=== PATIENT | male | born 1975 ===

== ENCOUNTER 2017-03-15 20:20 | Emergency (ER) | payer OTHER ==
[2017-03-15 20:37] VITALS: BP 133/78; PULSE 75; RESP 20; TEMP 98.5; O2SAT 95
--- NOTE | 2017-03-15 21:15 | C.PDOC ---
Time Seen by Provider: 03/15/17 21:01 Chief Complaint (Nursing): ENT Problem PMH - Immunization History Hx Tetanus Toxoid Vaccination: No Hx Influenza Vaccination: No Hx Pneumococcal Vaccination: No ED Course And Treatment O2 Sat by Pulse Oximetry: 95 Disposition Counseled Patient/Family Regarding: Diagnosis, Need For Followup, Rx Given - Disposition Referrals: [facility] [Outside] Disposition: HOME/ ROUTINE Disposition Time: 21:12 Condition: STABLE Additional Instructions: Gargle with warm salt water Continue chloraseptic spray Take motrin for pain Follow up with PMD Return to ER if worse Prescriptions: Azithromycin [Zithromax] 250 mg PO DAILY #6 tab Instructions: Pharyngitis (ED) Print Language: ALBANIAN - Clinical Impression Clinical Impression: Pharyngitis
--- NOTE | 2017-03-15 21:19 | C.PDOC ---
History Of Present Illness The patient, a 41 y/o male, presents to the ED for evaluation of sore throat and left ear pain which began around 3 days ago. Patient also reports hoarseness of his voice. Patient states he found no relief after trying over-the -counter medications and now presents to the ED for further evaluation. Patient denies fever, chills, headache, cough, runny nose. Time Seen by Provider: 03/15/17 21:01 Chief Complaint (Nursing): ENT Problem History Per: Patient History/Exam Limitations: None Onset/Duration Of Symptoms: Days (3) Current Symptoms Are (Timing): Still Present Quality (Ear): Pain W/Touch Past Medical History Reviewed: Historical Data, Nursing Documentation, Vital Signs Vital Signs: Last Vital Signs Temp 98.5 F 03/15/17 20:34 Pulse 75 03/15/17 20:34 Resp 20 03/15/17 21:26 BP 133/78 03/15/17 20:34 Pulse Ox 95 03/16/17 02:38 - Medical History PMH: No Chronic Diseases Surgical History: No Surg Hx Family History: States: Unknown Family Hx - Social History Hx Alcohol Use: Yes Hx Substance Use: No - Immunization History Hx Tetanus Toxoid Vaccination: No Hx Influenza Vaccination: No Hx Pneumococcal Vaccination: No Review Of Systems Except As Marked, All Systems Reviewed And Found Negative. Constitutional: Negative for: Fever, Chills ENT: Positive for: Ear Pain (left ), Throat Pain, Other (+hoarse voice ). Negative for: Nose Discharge Respiratory: Negative for: Cough Neurological: Negative for: Headache Physical Exam - Physical Exam Appears: Non-toxic, No Acute Distress Skin: Normal Color, Warm, Dry Head: Atraumatic, Normacephalic, Tenderness (submandibular gland b/l) Eye(s): bilateral: Normal Inspection, EOMI Ear(s): Bilateral: Normal Nose: Normal, No Discharge Oral Mucosa: Moist Throat: Erythema (mild ), No Exudate Neck: Normal ROM, Supple, No Other (swelling ) Chest: Symmetrical, No Deformity, No Tenderness Cardiovascular: Rhythm Regular, No Murmur Respiratory: Normal Breath Sounds, No Rales, No Rhonchi, No Wheezing Back: Normal Inspection Extremity: Normal ROM, Capillary Refill (less than 2 seconds ) Neurological/Psych: Oriented x3, Normal Speech, Normal Cognition Gait: Steady ED Course And Treatment O2 Sat by Pulse Oximetry: 95 (on RA ) Pulse Ox Interpretation: Normal Progress Note: On reassessment, patient is resting comfortably, showing no signs of distress and is stable for discharge. Patient will be discharged with Rx and is advised to follow up with his PMD within a timely manner for further evaluation. 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 - Scribe Statement The provider has reviewed the documentation as recorded by the Scribe (Esme Rand)
== END 2017-03-15 21:26 | disposition home or self-care (01) ==
LOC: C.ER 20:20
DX: J02.9 Acute pharyngitis, unspecified (principal)